=== PATIENT | female | born 1940 | race Caucasian/White ===

== ENCOUNTER → 2016-08-20 | Outpatient (CLI) | payer MEDICARE, BC ==
[~2016-08-20] MED LIST: ADVA100A INH; ALBU17I INH; AZIT500I PO; CEFU1TAB43 PO; PRED10PA PO; PROM6.257 PO
[2016-08-20 14:36] LABS: AUTOMATED NEUTROPHIL # 2.3 TH/MM3 (1.8-7.7); BASOPHIL % 0.5 % (0.0-2.0); EOSINOPHIL # 0.1 TH/MM3 (0-0.4); EOSINOPHIL % 1.4 % (0.0-4.0); HEMATOCRIT 39.8 % (35.0-46.0); LYMPH % 35.1 % (9.0-44.0); LYMPHOCYTE # 1.6 TH/MM3 (1.0-4.8); MEAN CELL VOLUME 69.8 FL (80.0-100.0); MEAN CORPUSCULAR HEMOGLOBIN 21.8 PG (27.0-34.0); MEAN CORPUSCULAR HGB CONC 31.1 % (32.0-36.0); MONO % 12.9 % (0.0-8.0); NEUT % 50.1 % (16.0-70.0); PLATELET COUNT 203 TH/MM3 (150-450); RED CELL DISTRIBUTION WIDTH 14.8 % (11.6-17.2); WHITE BLOOD COUNT 4.6 TH/MM3 (4.0-11.0)
[2016-08-20 14:41] LABS: HEMO FLAGS AUTO DIFF
[2016-08-20 15:23] LABS: KERATOCYTES OCC (NORMAL); OVALOCYTES 1+ (NORMAL); PLATELET ESTIMATE SMEAR NORMAL (NORMAL); PLATELET MORPHOLOGY NORMAL (NORMAL); SCAN/DIFF AUTO DIFF CONFIRMED; TARGET CELLS 1+ (NORMAL)
--- NOTE | 2016-08-21 16:31 | EKG ---
Date Performed: 08/20/2016 Time Performed: 14:36:12 PTAGE: 76 years EKG: Sinus rhythm POSSIBLE LEFT ATRIAL ENLARGEMENT BORDERLINE ECG NO PREVIOUS TRACING DOCTOR: Dominic Oliva Interpretating Date/Time 08/21/2016 16:30:27
== END ==
LOC: CPRE 14:07
PROVIDERS: ATTEND Ophthalmology
DX: Z01.810 Encounter for preprocedural cardiovascular examination (principal); Z01.812 Encounter for preprocedural laboratory examination; H25.812 Combined forms of age-related cataract, left eye; R94.31 Abnormal electrocardiogram [ECG] [EKG]
CPT/HCPCS: 36415; 85025; 93005

== ENCOUNTER → 2016-09-03 | Day surgery (SDC) | payer MEDICARE, BC ==
--- NOTE | 2016-08-27 15:27 | MH ---
cc: LETITIA PEÑA M.D. [facility], DATE OF ADMISSION: 09/03/2016 ADMISSION DIAGNOSIS Cataract, left eye. HISTORY OF PRESENT ILLNESS This 76-year-old white female is coming through [facility] for the purpose of a lens extraction of the left eye with intraocular lens implant under local anesthesia. She has noticed decreasing visual acuity interfering with her daily activities and elected to have the above procedure. Her best-corrected visual acuity is 20/40 in each eye. PAST MEDICAL HISTORY The patient is without significant medical problems currently. She was hospitalized for bronchitis in July 2012. PAST SURGICAL HISTORY 1. Radial keratotomy in both eyes in the past. 2. Retinal detachment in the right eye which required a gas bubble. 3. Foot surgery. 4. Left hip replacement. 5. Right hip replacement. MEDICATIONS 1. Cranberry daily. 2. Vitamin-B12. ALLERGIES ASPIRIN WHICH UPSETS HER STOMACH, but no other real allergy. SOCIAL HISTORY She is a one pack per day smoker for 30 years and does not drink alcohol. FAMILY HISTORY Positive for father and son with cataracts and son with glaucoma. REVIEW OF SYSTEMS HEAD: Patient denies severe headaches, dizziness or recent head injury. EARS: Patient denies hearing loss, ear pain, discharge or ringing in the ears. NOSE: Patient denies nasal discharge, obstruction or frequent colds. MOUTH AND THROAT: Patient denies soreness of the mouth or tongue, bleeding gums, trouble swallowing, changes in voice or sore throat. NECK: Patient denies neck pain or swelling, limitation of neck movement or neck injury. CARDIOPULMONARY SYSTEM: Patient denies shortness of breath, orthopnea, chronic cough, sputum production, hemoptysis, chest pain, wheezing, palpitations or light-headedness. GI SYSTEM: Patient denies poor appetite, nausea, vomiting, abdominal pain, ulcers, hemorrhoids or change in bowel habits. SYSTEM: The patient denies urinary frequency, dysuria, change in urine color. NERVOUS SYSTEM: Patient denies convulsions, vertigo, stroke, numbness or weakness. PHYSICAL EXAMINATION VITAL SIGNS: Blood pressure 118/72, pulse 84, respirations 16. HEAD: Normocephalic, atraumatic. NOSE: Without rhinorrhea. THROAT: Clear. NECK: Supple. CHEST: Clear. HEART: Regular rhythm. ABDOMEN: Without tenderness. EXTREMITIES: Without edema. NEUROLOGIC: Within normal limits. MENTAL STATUS: Within normal limits. EYE EXAM: The patient's best-corrected visual acuity is 20/40 in each eye. Visual salvador are full to confrontation testing. Extraocular muscle exam reveals full versions with orthophoria in the distance and exophoria at near. Pupils are 3 mm, equal, round and reactive to light without afferent defect. Anterior segment examination reveals radial keratotomy scars in both eyes. There is some mild papillary reaction in the conjunctiva of each eye. There are nuclear sclerotic cataracts bilaterally. Intraocular pressure is 19 in the right eye and 17 in the left by applanation tonometry. Dilated fundus exam revealed sharp disks with cup-to-disk ratio of 0.3 in each eye. There is an epiretinal membrane in the right macula and occasional drusen in both macula. A posterior vitreous detachment is present bilaterally. A chorioretinal scar was noted and she has had retinal detachment repair superonasally with a pneumatic retinopexy. She is also status post laser inferotemporally in the left eye for retinal tear. IMPRESSION 1. Bilateral cataracts. 2. Epiretinal membrane, right macula. 3. Posterior vitreous detachment, both eyes 4. Status post pneumatic retinopexy for retinal detachment, right eye. 5. Status post laser treatment for retinal tear, left eye. PLAN Lens extraction of the left eye with intraocular lens implant under local anesthesia through [facility]. The patient has been cleared medically. She has been counseled as to the risks, benefits and alternatives and elected to proceed. I feel that cataract surgery will improve the quality of life and activities of daily living in this patient. MD JANN Braga/CRISTINA /3:04 PM /3:18 PM
[~2016-09-03] VITALS: Ht 152.4 cm; Wt 65.0 kg
[~2016-09-03] MED LIST changes: +ACETYLCHOLINE CHL OPHT SOLN 1:100 2 ML VIAL IO ONE; -ADVA100A INH; -ALBU17I INH; -AZIT500I PO; -CEFU1TAB43 PO; +CYCLOPENTOLATE HCL 1% OPHT SOLN 2 ML BTL ONE; +DICLOFENAC SOD 0.1% OPHT SOLN 2.5 ML BTL ONE; +EPINEPHrine HCL PF/SF (1:1000) 1 MG/ML AMP I-OCULAR ONE; +GATIFLOXACIN 0.5% OPHT SOLN 2.5 ML BTL ONE; +HYALURONIDASE/LIDOCAINE/BUPIVACAINE 4.5 ML SYR ONE; +HYALURONIDASE/LIDOCAINE/BUPIVACAINE 6 ML SYR ONE; +PHENYLEPHRINE HCL 2.5% OPTH SOLN 2 ML BTL ONE; +PILOCARPINE HCL 2% OPHT SOLN 15 ML BTL LEFT EYE ONE; -PRED10PA PO; -PROM6.257 PO; +PROPARACAINE HCL 0.5% OPHT SOLN 15 ML BTL ONE; +PROPOFOL 200 MG/20 ML AMP ONE; +SODIUM CHLORID 0.9% 500 ML INJ 500 ML ONE; +TOBRAMYCIN/DEXAMETHASONE OPTH OINT 3.5 GM TUBE LEFT EYE ONE; +TROPICAMIDE 1% OPHT SOLN 15 ML BTL ONE; +VISCOAT OPHT IRRIG SOLN 0.75 ML SYRINGE LEFT EYE ONE
[2016-09-03 09:15] VITALS: BP 178/87; PULSE 69; PULSE 74; RESP 16; TEMP 97.8; O2SAT 97
[2016-09-03 09:32] VITALS: PULSE 75
[2016-09-03 12:05] VITALS: BP 155/66; PULSE 68; RESP 16; TEMP 98; O2SAT 100
--- NOTE | 2016-09-03 12:38 | MP ---
cc: LETITIA PAULSON M.D. DATE OF SURGERY: September 03, 2016 PREOPERATIVE DIAGNOSIS: Cataract left eye. POSTOPERATIVE DIAGNOSIS: Cataract left eye. OPERATION: Extracapsular cataract extraction with posterior chamber intraocular lens implant by phacoemulsification, left eye. SURGEON: Letitia Paulson M.D. ANESTHESIA: Local. COMPLICATIONS: None. INDICATIONS: See history and physical previously dictated. OPERATIVE PROCEDURE: The patient had adequate retrobulbar and eyelid blocks administered in the holding area and was brought to the operating room. The left eye was prepped and draped in the usual sterile ophthalmic manner. A lid speculum was inserted in the left eye. A 4-0 silk bridle suture was placed through the conjunctiva near the superior rectus muscle and it was tagged to the drape. A fornix-based conjunctival flap was prepared spanning approximately 5 mm in width. Hemostasis was obtained with wet-field cautery. A 3.5 mm groove was made 1 mm from the limbus and dissected up to the limbus in the form of a scleral pocket incision. A stab incision was then made at the 2 o'clock position. Viscoelastic was injected into the anterior chamber. The anterior chamber was entered with a 2.75 mm keratome through the scleral pocket incision. A 360 degree continuous curvilinear capsulorrhexis was then performed. Hydrodissection was utilized to divide the nucleus into inner and outer components and to separate the cortex from the capsule. Phacoemulsification was then utilized to remove the nucleus. The outer nuclear layer was removed with irrigation and aspiration and short bursts of ultrasound as necessary. The cortex was removed with the irrigation/aspiration handpiece. The posterior capsule was polished with the capsule polisher. Viscoelastic was injected into the capsular bag. The intraocular lens was inspected and found to be in good condition. The lens utilized was an Harry, model number SA60AT with a power of +24 diopters. The lens was inserted into the capsular bag. The viscoelastic in the anterior chamber was then removed with the irrigation-aspiration handpiece. Viscoelastic was also removed from beneath the intraocular lens. The anterior chamber was filled with Miochol-E through the stab incision and pressurized. The wound was checked for leaks at this pressure and normalized pressure and there were none. The 4-0 bridle suture was removed. The conjunctival flap was brought down over the wound and secured with cautery. Pilocarpine 2% eye drops were instilled topically. The lid speculum was removed. TobraDex ophthalmic ointment was applied. The eye was double patched and shielded. The patient tolerated the procedure well and left the Operating Room in satisfactory condition. MD JANN Braga/KHANG /11:37 AM /12:36 PM
== END | disposition home or self-care (01) ==
LOC: PHSDC 07:51
PROVIDERS: ATTEND Ophthalmology
DX: H26.9 Unspecified cataract (principal)
CPT/HCPCS: 00142; 66984; J0171; J7040; V2632